=== PATIENT | male | born 1955 | race African-American/Black ===

== ENCOUNTER 2018-03-29 17:09 | Emergency (ER) | payer MEDICAID ==
[~2018-03-29] VITALS: Ht 175.3 cm; Wt 103.0 kg
[2018-03-29 17:15] VITALS: Ht 175.3 cm; Wt 103.0 kg
[2018-03-29 17:43] LABS: BASOPHIL % 0.2 % (0-2); PLATELET COUNT 208 x10^3mcL (130-400)
[2018-03-29 17:49] LABS: RED CELL DISTRIBUTION WIDTH 14.7 % (11.5-14.5)
[2018-03-29 18:00] LABS: CALCIUM 8.7 mg/dL (8.5-10.1); CREATININE SERUM 1.4 mg/dL (0.7-1.3); POTASSIUM SERUM 3.5 mmol/L (3.5-5.1)
[2018-03-29 18:04] LABS: BILIRUBIN TOTAL 0.32 mg/dL (0.20-1.00)
[2018-03-29 18:05] LABS: ALBUMIN 3.3 g/dL (3.4-5.0)
[2018-03-29 19:06] VITALS: BP 168/76
== END 2018-03-29 19:06 | disposition home or self-care (01) ==
LOC: ED 17:09
PROVIDERS: Emergency Medicine
DX: I10 Essential (primary) hypertension (principal); N28.9 Disorder of kidney and ureter, unspecified; R51 Headache; R53.1 Weakness
CPT/HCPCS: 36415